=== PATIENT | female | born 1985 | race Caucasian/White ===

== ENCOUNTER 2018-04-10 06:45 | Emergency (ER) | payer MEDICAID ==
[~2018-04-10] VITALS: Ht 152.4 cm; Wt 107.7 kg
[2018-04-10 06:51] VITALS: Ht 152.4 cm; Wt 107.7 kg
[2018-04-10 07:17] VITALS: BP 119/91
== END 2018-04-10 07:18 | disposition home or self-care (01) ==
LOC: ED 06:45
DX: J06.9 Acute upper respiratory infection, unspecified (principal); J45.909 Unspecified asthma, uncomplicated

== ENCOUNTER 2018-06-05 07:22 | Emergency (ER) | payer MEDICAID ==
[~2018-06-05] VITALS: Ht 152.4 cm; Wt 108.0 kg
[2018-06-05 07:28] VITALS: Ht 152.4 cm; Wt 108.0 kg
[2018-06-05 09:37] VITALS: BP 131/82
== END 2018-06-05 09:37 | disposition home or self-care (01) ==
LOC: ED 07:22
DX: S93.401A Sprain of unspecified ligament of right ankle, initial encounter (principal); E66.01 Morbid (severe) obesity due to excess calories; Z68.42 Body mass index [BMI] 45.0-49.9, adult; J45.909 Unspecified asthma, uncomplicated; X50.1XXA Overexertion from prolonged static or awkward postures, initial encounter; Y93.89 Activity, other specified; Y92.89 Other specified places as the place of occurrence of the external cause; Y99.8 Other external cause status
CPT/HCPCS: Q0092

== ENCOUNTER 2018-06-30 06:59 | Emergency (ER) | payer MEDICAID ==
[~2018-06-30] VITALS: Ht 162.6 cm; Wt 108.9 kg
[2018-06-30 07:03] VITALS: BP 127/80; Ht 162.6 cm; Wt 108.9 kg
== END 2018-06-30 09:16 | disposition home or self-care (01) ==
LOC: ED 06:59
DX: J45.901 Unspecified asthma with (acute) exacerbation (principal); E66.01 Morbid (severe) obesity due to excess calories; K80.20 Calculus of gallbladder without cholecystitis without obstruction; Z68.41 Body mass index [BMI] 40.0-44.9, adult; Z98.890 Other specified postprocedural states
CPT/HCPCS: 87804; J2930; J7613; J7644

== ENCOUNTER 2018-08-16 07:28 | Emergency (ER) | payer MEDICAID ==
[~2018-08-16] VITALS: Ht 152.4 cm; Wt 106.1 kg
[2018-08-16 07:35] VITALS: Ht 152.4 cm; Wt 106.1 kg
[2018-08-16 10:36] VITALS: BP 102/55
== END 2018-08-16 10:36 | disposition home or self-care (01) ==
LOC: ED 07:28
DX: N10 Acute pyelonephritis (principal); J06.9 Acute upper respiratory infection, unspecified; R50.9 Fever, unspecified; J45.909 Unspecified asthma, uncomplicated; Z98.890 Other specified postprocedural states
CPT/HCPCS: 87804; J0696; J7512; J7613; Q0092

== ENCOUNTER 2018-11-04 19:09 | Emergency (ER) | payer MEDICAID ==
[~2018-11-04] VITALS: Ht 152.4 cm; Wt 107.5 kg
[2018-11-04 19:32] VITALS: Ht 152.4 cm; Wt 107.5 kg
[2018-11-04 20:42] VITALS: BP 145/89
== END 2018-11-04 20:35 | disposition home or self-care (01) ==
LOC: ED 19:09
DX: J03.90 Acute tonsillitis, unspecified (principal); J45.909 Unspecified asthma, uncomplicated; Z98.890 Other specified postprocedural states

== ENCOUNTER 2019-03-19 12:23 | Emergency (ER) | payer MEDICAID ==
[~2019-03-19] VITALS: Ht 149.9 cm; Wt 110.2 kg
[2019-03-19 12:26] VITALS: Ht 149.9 cm; Wt 110.2 kg
[2019-03-19 14:20] VITALS: BP 128/83
== END 2019-03-19 14:20 | disposition home or self-care (01) ==
LOC: ED 12:23
DX: N39.0 Urinary tract infection, site not specified (principal); J45.909 Unspecified asthma, uncomplicated; Z98.890 Other specified postprocedural states
CPT/HCPCS: J1885

== ENCOUNTER 2019-05-29 10:15 | Emergency (ER) | payer MEDICAID ==
[~2019-05-29] VITALS: Ht 149.9 cm; Wt 111.1 kg
[2019-05-29 10:21] VITALS: Ht 149.9 cm; Wt 111.1 kg
[2019-05-29 12:53] VITALS: BP 130/75
== END 2019-05-29 12:54 | disposition home or self-care (01) ==
LOC: ED 10:15
DX: J45.901 Unspecified asthma with (acute) exacerbation (principal); Z98.890 Other specified postprocedural states
CPT/HCPCS: J7512; J7613; J7644

== ENCOUNTER 2019-07-09 17:11 | Emergency (ER) | payer MEDICAID ==
[~2019-07-09] VITALS: Ht 149.9 cm; Wt 112.0 kg
[2019-07-09 17:20] VITALS: Ht 149.9 cm; Wt 112.0 kg
[2019-07-09 19:18] VITALS: BP 154/97
== END 2019-07-09 19:18 | disposition home or self-care (01) ==
LOC: ED 17:11
DX: S09.8XXA Other specified injuries of head, initial encounter (principal); J45.909 Unspecified asthma, uncomplicated; Z98.890 Other specified postprocedural states; W21.02XA Struck by soccer ball, initial encounter; Y93.66 Activity, soccer; Y92.89 Other specified places as the place of occurrence of the external cause; Y99.8 Other external cause status

== ENCOUNTER 2020-01-01 07:04 | Emergency (ER) | payer MEDICAID ==
[~2020-01-01] VITALS: Ht 149.9 cm; Wt 108.0 kg
[2020-01-01 07:15] VITALS: Ht 149.9 cm; Wt 108.0 kg
[2020-01-01 08:03] VITALS: BP 142/95
== END 2020-01-01 08:03 | disposition home or self-care (01) ==
LOC: ED 07:04
DX: N39.0 Urinary tract infection, site not specified (principal); R07.89 Other chest pain; J45.909 Unspecified asthma, uncomplicated; Z98.890 Other specified postprocedural states
CPT/HCPCS: J0696; J1885

== ENCOUNTER 2020-03-30 22:52 | Emergency (ER) | payer MEDICAID ==
[~2020-03-30] VITALS: Ht 149.9 cm; Wt 109.4 kg
[2020-03-30 23:09] VITALS: Ht 149.9 cm; Wt 109.4 kg
[2020-03-30 23:59] LABS: BASOPHIL % 0.3 % (0-2); PLATELET COUNT 257 x10^3mcL (130-400); RED CELL DISTRIBUTION WIDTH 14.1 % (11.5-14.5)
[2020-03-31 00:16] LABS: CARBON DIOXIDE 29.1 mmol/L (21-32); CHLORIDE SERUM 102 mmol/L (98-107); CREATININE SERUM 0.8 mg/dL (0.6-1.0); GFR1 > 60 mL/min; GLUCOSE SERUM 155 mg/dL (74-106); POTASSIUM SERUM 3.3 mmol/L (3.5-5.1); SODIUM SERUM 137 mmol/L (136-145)
[2020-03-31 00:24] LABS: T3 TOTAL 1.35 ng/mL
[2020-03-31 00:35] LABS: ALBUMIN 3.1 g/dL (3.4-5.0); ALKALINE PHOSPHATASE 61 U/L (46-116); ALT/SGPT 86 U/L (14-59); AST/SGOT 38 U/L (15-37); BILIRUBIN TOTAL 0.2 mg/dL (0.20-1.00); CHOLESTEROL 134 mg/dL (<200); CHOLESTEROL/HDL RATIO 4.5; HDL CHOLESTEROL 30 mg/dL (40-60); LIPASE 211 IU/L (73-393); TOTAL PROTEIN, SERUM 7.4 g/dL (6.4-8.2); TRIGLYCERIDES 133 mg/dL (<150)
[2020-03-31 00:40] LABS: FREE THYROXINE INDEX 2.2 ug/dL (1.4-4.5); T4(THYROXINE) 7.4 ug/dL (4.7-13.3)
[2020-03-31 01:09] VITALS: BP 114/80
== END 2020-03-31 01:09 | disposition home or self-care (01) ==
LOC: ED 22:52
PROVIDERS: Specialist
DX: T78.1XXA Other adverse food reactions, not elsewhere classified, initial encounter (principal); J45.909 Unspecified asthma, uncomplicated; E66.01 Morbid (severe) obesity due to excess calories; Z98.890 Other specified postprocedural states; X58.XXXA Exposure to other specified factors, initial encounter
CPT/HCPCS: 83880; 84439; J1200; J7512; Q0092

== ENCOUNTER 2020-06-23 06:12 | Emergency (ER) | payer MEDICAID ==
[~2020-06-23] VITALS: Ht 149.9 cm; Wt 104.8 kg
[2020-06-23 06:17] VITALS: Ht 149.9 cm; Wt 104.8 kg
[2020-06-23 07:21] LABS: microscopic required? YES; urine erythrocyte 2+ (NEGATIVE)
[2020-06-23 07:27] LABS: BASOPHIL % 0.4 % (0-2); PLATELET COUNT 332 x10^3mcL (130-400); RED CELL DISTRIBUTION WIDTH 14.5 % (11.5-14.5)
[2020-06-23 08:33] LABS: CARBON DIOXIDE 29.6 mmol/L (21-32); CHLORIDE SERUM 106 mmol/L (98-107); CREATININE SERUM 0.7 mg/dL (0.6-1.0); GFR1 > 60 mL/min; GLUCOSE SERUM 124 mg/dL (74-106); POTASSIUM SERUM 3.9 mmol/L (3.5-5.1); SODIUM SERUM 140 mmol/L (136-145)
[2020-06-23 08:37] LABS: ALKALINE PHOSPHATASE 68 U/L (46-116); ALT/SGPT 40 U/L (14-59); AST/SGOT 25 U/L (15-37); BILIRUBIN TOTAL 0.2 mg/dL (0.20-1.00); TOTAL PROTEIN, SERUM 8.2 g/dL (6.4-8.2)
[2020-06-23 08:38] LABS: ALBUMIN 3.3 g/dL (3.4-5.0)
[2020-06-23 09:22] VITALS: BP 121/98
== END 2020-06-23 09:22 | disposition home or self-care (01) ==
LOC: ED 06:12
PROVIDERS: Emergency Medicine
DX: N39.0 Urinary tract infection, site not specified (principal); J45.909 Unspecified asthma, uncomplicated; Z98.890 Other specified postprocedural states
CPT/HCPCS: J1885

== ENCOUNTER 2020-07-05 04:57 | Emergency (ER) | payer MEDICAID, SELFPAY ==
[~2020-07-05] VITALS: Ht 149.9 cm; Wt 102.7 kg
[2020-07-05 05:00] VITALS: Ht 149.9 cm; Wt 102.7 kg
[2020-07-05 06:15] VITALS: BP 129/70
== END 2020-07-05 06:15 | disposition home or self-care (01) ==
LOC: ED 04:57
DX: U07.1 COVID-19 (principal); J45.909 Unspecified asthma, uncomplicated; Z98.890 Other specified postprocedural states
CPT/HCPCS: U0003

== ENCOUNTER 2020-08-24 17:20 | Emergency (ER) | payer MEDICAID, SELFPAY ==
[~2020-08-24] VITALS: Ht 149.9 cm; Wt 108.9 kg
[2020-08-24 17:24] VITALS: BP 136/71; Ht 149.9 cm; Wt 108.9 kg
[2020-08-24 20:22] LABS: BASOPHIL % 0.3 % (0.2-1.3); PLATELET COUNT 322 x10^3mcL (179-408)
[2020-08-24 20:30] LABS: RED CELL DISTRIBUTION WIDTH 15.8 % (12.3-17.7)
[2020-08-24 20:31] LABS: rbc morphology (normal/abnorm) NORMAL (NORMAL)
[2020-08-24 20:35] LABS: CALCIUM 8.7 mg/dL (8.5-10.1); CARBON DIOXIDE 26.6 mmol/L (21-32); CHLORIDE SERUM 99 mmol/L (98-107); CREATININE SERUM 0.7 mg/dL (0.6-1.0); GFR1 > 60 mL/min; GLUCOSE SERUM 116 mg/dL (74-106); POTASSIUM SERUM 3.2 mmol/L (3.5-5.1); SODIUM SERUM 134 mmol/L (136-145)
[2020-08-24 20:39] LABS: ALBUMIN 3.5 g/dL (3.4-5.0); ALKALINE PHOSPHATASE 69 U/L (46-116); ALT/SGPT 32 U/L (14-59); AST/SGOT 19 U/L (15-37); BILIRUBIN TOTAL 0.2 mg/dL (0.20-1.00); LIPASE 155 IU/L (73-393)
[2020-08-24 20:42] LABS: TOTAL PROTEIN, SERUM 8.8 g/dL (6.4-8.2)
[2020-08-24 20:48] LABS: microscopic required? YES; urine erythrocyte TRACE (NEGATIVE)
== END 2020-08-24 22:00 | disposition home or self-care (01) ==
LOC: ED 17:20
PROVIDERS: Emergency Medicine
DX: N39.0 Urinary tract infection, site not specified (principal); R10.32 Left lower quadrant pain; Z20.828 Contact with and (suspected) exposure to other viral communicable diseases
CPT/HCPCS: U0003